=== PATIENT | female | born 1950 | race Caucasian/White ===

== ENCOUNTER → 2017-08-28 | Outpatient (CLI) | payer MEDICARE | LOC: MAMMO 09:25 | PROVIDERS: ATTEND Specialist | DX: Z12.31 Encounter for screening mammogram for malignant neoplasm of breast (principal) ==

== ENCOUNTER → 2018-08-30 | Outpatient (CLI) | payer MEDICARE | LOC: MAMMO 09:17 | PROVIDERS: ATTEND Specialist | DX: Z12.31 Encounter for screening mammogram for malignant neoplasm of breast (principal) ==

== ENCOUNTER → 2019-10-14 | Outpatient (CLI) | payer MEDICARE | LOC: MAMMO 12:51 | PROVIDERS: ATTEND Specialist | DX: Z12.31 Encounter for screening mammogram for malignant neoplasm of breast (principal) ==

== ENCOUNTER → 2020-05-06 | Outpatient (CLI) | payer MEDICARE ==
--- NOTE | 2020-05-07 08:40 | Diagnostic Imaging Report ---
#[id number] - MGDXRT #UNILATERAL RIGHT DIGITAL DIAGNOSTIC MAMMOGRAM: 05/06/2020 Comparison is made to exams dated: 10/14/2019 mammogram, 08/30/2018 mammogram, 08/28/2017 mammogram, 10/24/2016 mammogram, 10/12/2014 mammogram and 08/21/2013 mammogram - [facility] [place]. Current study contains 5 films. The tissue of the right breast is heterogeneously dense. This may lower the sensitivity of mammography. Right breast implant is intact. No significant masses, calcifications, or other findings are seen in the breast. IMPRESSION: NEGATIVE See the report for ultrasound performed the same day for additional details. There is no mammographic evidence of malignancy. A 1 year screening mammogram is recommended. The patient will be notified by letter of the results. SAMSON BLAKE M.D. ct/penrad:05/06/2020 12:30:12 [employer] Craft Maintenance Technician: Shania INFANTE(Sumit)(M), [facility] letter sent: Normal Exam Mammogram BI-RADS: 1 Negative
--- NOTE | 2020-05-07 08:40 | Diagnostic Imaging Report ---
#[id number] - USBRELIMRT ULTRASOUND OF THE RIGHT BREAST : 05/06/2020 Comparison is made to exams dated: 05/06/2020 mammogram, 10/14/2019 mammogram and 10/12/2014 mammogram - [facility]. Color flow and real-time ultrasound were performed on the right breast. There are no solid or cystic masses identified. Implant is intact. IMPRESSION: BENIGN There is no sonographic evidence of malignancy. A 1 year screening mammogram is recommended. SAMSON BLAKE M.D. ct/penrad:05/06/2020 12:30:52 Public Health Officer: Yaquelin Caraballo [facility], [facility] letter sent: Normal Exam Ultrasound BI-RADS: 2 Benign
== END ==
LOC: MAMMO 09:13
PROVIDERS: ATTEND Internal Medicine Hematology & Oncology
DX: N64.4 Mastodynia (principal); Z85.3 Personal history of malignant neoplasm of breast

== ENCOUNTER → 2021-08-16 | Outpatient (CLI) | payer MEDICARE | LOC: MAMMO 09:59 | PROVIDERS: ATTEND Internal Medicine Hematology & Oncology | DX: Z12.31 Encounter for screening mammogram for malignant neoplasm of breast (principal) ==

== ENCOUNTER → 2022-08-16 | Outpatient (CLI) | payer MEDICARE | LOC: MAMMO 09:44 | PROVIDERS: ATTEND Specialist | DX: Z12.31 Encounter for screening mammogram for malignant neoplasm of breast (principal) ==

== ENCOUNTER → 2024-06-11 | Outpatient (REF) | payer MEDICARE | LOC: MAMMO 09:53 | PROVIDERS: ATTEND Internal Medicine Hematology & Oncology | DX: N64.4 Mastodynia (principal); Z85.3 Personal history of malignant neoplasm of breast | CPT/HCPCS: 77066 ==